=== PATIENT | female | born 1975 | race Two or more races ===

== ENCOUNTER 2021-08-23 06:48 | Day surgery (SDC) | payer OTHER ==
[~2021-08-23 06:48] MED LIST: CLONAZEPAM1 M1 PO; HORIZANT600 MG PO; NABUMETONE750 MG PO; PEPCID AC20 MG PO; ZESTRIL5 MG PO; ZOLOFT100 MG PO
== END 2021-08-24 | disposition home or self-care (01) ==
LOC: CIR.AMB 06:48
PROVIDERS: ATTEND Orthopaedic Surgery Hand Surgery
DX: S53.31XA Traumatic rupture of right ulnar collateral ligament, initial encounter (principal); I10 Essential (primary) hypertension; E66.9 Obesity, unspecified